=== PATIENT | male | born 1975 | race Caucasian/White ===

== ENCOUNTER 2018-07-06 00:07 | Emergency (ER) | payer OTHER, BC ==
[2018-07-06] MEDS: ADACEL/BOOSTRIX VACCINE (DIPHTH/PERTUSS/ACELL/TETANUS)0.5ML SYR (90715) IM (02:30)
== END 2018-07-06 02:34 | disposition home or self-care (01) ==
LOC: M ED 00:07
DX: S01.111A Laceration without foreign body of right eyelid and periocular area, initial encounter (principal); W19.XXXA Unspecified fall, initial encounter; Y92.096 Garden or yard of other non-institutional residence as the place of occurrence of the external cause; Y93.89 Activity, other specified; Y99.9 Unspecified external cause status; Z72.0 Tobacco use
CPT/HCPCS: 90715